=== PATIENT | male | born 1990 | race African-American/Black ===

== ENCOUNTER 2021-10-20 10:21 | Outpatient (CLI) | payer OTHER ==
--- NOTE | 2021-10-20 11:20 | XRay Report ---
Lumbar spine 3 views INDICATION: Back pain FINDINGS: Facet degenerative changes seen throughout. Endplate changes are seen with anterior disc os sified L4-5 and L5-S1. No subluxation. Visualized sacrum appears normal. Signer Name: Phillip Palafox MD Signed: 10/20/2021 11:15 AM Workstation Name: [id number]
== END 2021-10-20 10:22 | disposition home or self-care (01) ==
LOC: XRAY 10:21
PROVIDERS: ATTEND Internal Medicine
DX: M25.78 Osteophyte, vertebrae (principal)
CPT/HCPCS: 72100